=== PATIENT | female | born 1955 | race Caucasian/White ===

== ENCOUNTER → 2023-02-05 | Outpatient (CLI) | payer MEDICARE, OTHER ==
--- NOTE | 2023-02-08 05:09 | BD ---
EXAMINATION TYPE: Axial Bone Density DATE OF EXAM: 02/05/2023 CLINICAL HISTORY: 67 years old Female. ICD-10 CODE: M81.0 Osteoporosis Height: 57.5 Weight: 162.0 FRAX RISK QUESTIONS: Alcohol (3 or more units per day): No Family History (Parent hip fracture): Glucocorticoids (More than 3mos): (Ex: prednisone, prednisolone, methylprednisolone, dexamethasone, and hydrocortisone). History of Fracture in Adulthood: Secondary Osteoporosis: 1. Type 1 Diabetes: 2. Hyperthyroidism: 3. Menopause before 45: 4. Malnutrition: 5. Chronic liver disease: Rheumatoid Arthritis: Current Tobacco Use: RISK FACTORS HISTORY OF: Hip Fracture (Right/Left): When: Spine Fracture: When: History of Wrist Fracture: When: Surgery to Spine/Hip(right/left)/Wrist (right/left): When: Family History of Osteoporosis: Active: Diet low in dairy products/other sources of calcium: Postmenopausal woman: If Premenopausal, do you have irregular periods: Take estrogen and/or progesterone medications: How long: Lost more than 2 inches in height since high school: Frequent falls: Yes Poor Health: Yes Hyperparathyroidism: Adrenal Insufficiency: MEDICATIONS: Prednisone or other steroids: Which medication: Osteoporosis Medications: Additional Medications: Donepezil for dementia, melatonin, tylenol, vitamin B12, Vitamin D3 Additional History: Patient has dementia she was unable to answer history questions, 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 Bone mineral density as measured about the Lumbar spine is: ----- L1-L4(G/cm2): 0.753 T Score Values are as follows: ----- L1: -4.3 ----- L2: -3.9 ----- L3: -3.0 ----- L4: -3.4 ----- L1-L4: -3.6 Z Score Values are as follows: ----- L1: -3.0 ----- L2: -2.6 ----- L3: -1.7 ----- L4: -2.1 ----- L1-L4: -2.2 Baseline Bone mineral density about the R hip (g/cm2): 0.658 Bone mineral density about the L hip (g/cm2): 0.664 T Score values are as follows: -----R Neck: -2.9 -----L Neck: -3.5 -----R Total: -2.7 -----L Total: -2.8 Z Score values are as follows: -----R Neck: -1.6 -----L Neck: -2.2 -----R Total: -1.7 -----L Total: -1.8 Baseline FRAX%s: The graph provided illustrates a 20.7% chance for a major osteoporotic fx and a 8.0% chance f or the hips probability for fx in 10 years time. IMPRESSION: Osteoporosis (T Score less than -2.5). There is increased fracture risk and therapy is usually indicated based on age. Re-Screen 1-2 years. NOTE: T-SCORE=SD OF THE YOUNG ADULT MEAN.
--- NOTE | 2023-02-08 08:29 | MM ---
Reason for Exam: Screening (asymptomatic). Patient History: Patient has no children. Risk Values: Beulah 5 year model risk: 1.7%. NCI Lifetime model risk: 6.1%. Tissue Density: There are scattered fibroglandular densities. Findings: Analyzed By CAD. Right breast: Focal asymmetry right breast posterior depth on MLO view 9.1 cm from nipple on CC view laterally and 9.9 cm from nipple. This area measures roughly 11 mm. Left breast: There is no suspicious group of microcalcifications or new suspicious mass in either breast. Overall Assessment: Incomplete: need additional imaging evaluation, BI-RAD 0 Management: Diagnostic Breast Ultrasound of the left breast. Diagnostic Mammogram of the left breast. A clinical breast exam by your physician is recommended on an annual basis and results should be correlated with mammographic findings. [facility] will attempt to contact patient to return for supplemental views and ultrasound if indicated. Electronically signed and approved by: Bra West DO
== END | disposition home or self-care (01) ==
LOC: RADMAMWWP 13:22
PROVIDERS: ATTEND Family Medicine
DX: Z12.31 Encounter for screening mammogram for malignant neoplasm of breast (principal); M81.0 Age-related osteoporosis without current pathological fracture; M85.89 Other specified disorders of bone density and structure, multiple sites
CPT/HCPCS: 77063; 77067; 77080

== ENCOUNTER → 2023-02-10 | Outpatient (CLI) | payer MEDICARE, OTHER ==
--- NOTE | 2023-02-10 08:54 | MM ---
Reason for Exam: Additional evaluation requested from abnormal screening. Last screening mammogram was performed less than 1 month ago. Patient History: Menarche at age 13. Patient has no children. Postmenopausal. Risk Values: Beulah 5 year model risk: 1.9%. NCI Lifetime model risk: 6.7%. Prior Study Comparison: 02/05/2023 Bilateral MG 3D screening mammo w/cad, [facility]. Tissue Density: Right: There are scattered fibroglandular densities. Findings: Analyzed By CAD. Limit evaluation secondary to patient mental status/cooperation. There is redemonstration of 11 mm asymmetry right breast lateral aspect 9-10 cm from the nipple. Overall Assessment: Incomplete: need additional imaging evaluation, BI-RAD 0 Management: Diagnostic Breast Ultrasound of the right breast. A clinical breast exam by your physician is recommended on an annual basis and results should be correlated with mammographic findings. This exam should not preclude additional follow-up of suspicious palpable abnormalities. Results were given to the patient verbally at the time of exam. Electronically signed and approved by: Bar West DO
--- NOTE | 2023-02-10 09:40 | USB ---
Reason for Exam: Additional evaluation requested from abnormal screening. Patient History: Menarche at age 13. Patient has no children. Postmenopausal. Risk Values: Beulah 5 year model risk: 1.9%. NCI Lifetime model risk: 6.7%. Technique: Method: Targeted. Prior Study Comparison: 02/05/2023 Bilateral MG 3D screening mammo w/cad, [facility]. Findings: The upper outer quadrant of the right breast, the axilla of the right breast and the retroareolar of the right breast were scanned. Imaged: Ultrasound imaging of: Area of concern, retroareolar region and axilla. Hypoechoic lesion with posterior acoustic enhancement over the deep wall. Measuring 9 x 5 x 10 mm. Finding favored represent complicated cyst. Overall Assessment: Probably benign, BI-RAD 3 Management: Diagnostic Breast Ultrasound of the right breast in 6 months. A clinical breast exam by your physician is recommended on an annual basis and results should be correlated with mammographic findings. This exam should not preclude additional follow-up of suspicious palpable abnormalities. Results were given to the patient verbally at the time of exam. Electronically signed and approved by: Bar West DO
== END | disposition home or self-care (01) ==
LOC: RADMAMWWP 08:10
PROVIDERS: ATTEND Family Medicine
DX: R92.8 Other abnormal and inconclusive findings on diagnostic imaging of breast (principal); Z78.0 Asymptomatic menopausal state
CPT/HCPCS: 77065; 76642; G0279; 77061

== ENCOUNTER → 2023-08-13 | Outpatient (CLI) | payer MEDICARE, OTHER ==
--- NOTE | 2023-08-13 14:55 | MM ---
Reason for Exam: Follow-up at short interval from prior study. Last screening mammogram was performed 6 month(s) ago. Patient History: Menarche at age 13. Patient has no children. Postmenopausal. Risk Values: Beulah 5 year model risk: 1.9%. NCI Lifetime model risk: 6.7%. Prior Study Comparison: 02/05/2023 Bilateral MG 3D screening mammo w/cad, [facility]. 02/10/2023 Right MG 3D diag mammo w/cad RT, [facility]. Tissue Density: Right: The breast tissue is heterogeneously dense. This may lower the sensitivity of mammography. Findings: Analyzed By CAD. Motion degraded exam. No new suspicious mass or architectural distortion. No suspicious grouping of calcifications. Stable upper outer quadrant 1.2 cm high density mass at posterior depth. Overall Assessment: Incomplete: need additional imaging evaluation, BI-RAD 0 Management: Diagnostic Breast Ultrasound of the right breast. A clinical breast exam by your physician is recommended on an annual basis and results should be correlated with mammographic findings. This exam should not preclude additional follow-up of suspicious palpable abnormalities. Results were given to the patient verbally at the time of exam. Note on Beulah scores and lifetime risk: 1. A Beulah score greater than 3% is considered moderate risk. If this is the case, consider specialist referral to assess eligibility for a risk reducing agent. If overall lifetime risk for the development of breast cancer is 20% or higher, the patient may qualify for future screening with alternating mammogram and breast MRI. Electronically signed and approved by: Chan Ramos D.O.
--- NOTE | 2023-08-13 15:20 | USB ---
Reason for Exam: Additional evaluation requested from prior study. Patient History: Menarche at age 13. Patient has no children. Postmenopausal. Risk Values: Beulah 5 year model risk: 1.9%. NCI Lifetime model risk: 6.7%. Technique: Method: Targeted. Prior Study Comparison: 02/05/2023 Bilateral MG 3D screening mammo w/cad, [facility]. 02/10/2023 Right MG 3D diag mammo w/cad RT, [facility]. Findings: The upper outer quadrant of the right breast and the axilla of the right breast were scanned. Targeted ultrasound the right breast from 9-12 o'clock with additional evaluation of the nipple and axial talus performed. There is a stable ovoid circumscribed hypoechoic mass that is parallel in orientation without internal color flow. This measures 0.9 x 0.5 x 0.8 cm. Overall Assessment: Probably benign, BI-RAD 3 Management: Diagnostic Breast Ultrasound of the right breast in 6 months. Diagnostic Mammogram of both breasts in 6 months. A clinical breast exam by your physician is recommended on an annual basis and results should be correlated with mammographic findings. This exam should not preclude additional follow-up of suspicious palpable abnormalities. Results were given to the patient verbally at the time of exam. Electronically signed and approved by: Chan Ramos D.O.
== END | disposition home or self-care (01) ==
LOC: RADMAMWWP 14:24
PROVIDERS: ATTEND Family Medicine
DX: N63.11 Unspecified lump in the right breast, upper outer quadrant (principal); R92.331 Mammographic heterogeneous density, right breast; Z78.0 Asymptomatic menopausal state
CPT/HCPCS: 77065; 76642; G0279; 77061

== ENCOUNTER → 2024-02-17 | Outpatient (CLI) | payer MEDICARE ==
--- NOTE | 2024-02-17 08:13 | MM ---
Reason for Exam: Follow-up at short interval from prior study. Last mammogram was performed 1 year(s) and 1 month(s) ago. Patient History: Menarche at age 13. Patient has no children. Postmenopausal. Risk Values: Beulah 5 year model risk: 1.9%. NCI Lifetime model risk: 6.4%. Tissue Density: The breasts are heterogeneously dense, which may obscure small masses. Findings: Analyzed By CAD. The pattern is symmetrical. There is stable focal asymmetry in the upper outer right breast. No suspicious groups of microcalcifications, spiculated or lobular masses, architectural distortion or other secondary signs of malignancy are mammographically apparent. Overall Assessment: Benign, BI-RAD 2 Management: Screening Mammogram of both breasts in 1 year. A negative mammogram report should not preclude additional follow up of suspicious palpable abnormalities. Patient should continue monthly self breast exam. A clinical breast exam by your physician is recommended on an annual basis and results should be correlated with mammographic findings. Note on Beulah scores and lifetime risk: 1. A Beulah score greater than 3% is considered moderate risk. If this is the case, consider specialist referral to assess eligibility for a risk reducing agent. 2. If overall lifetime risk for the development of breast cancer is 20% or higher, the patient may qualify for future screening with alternating mammogram and breast MRI. Electronically signed and approved by: Jhonny Roman D.O. Radiologis
== END | disposition home or self-care (01) ==
LOC: RADMAMWWP 07:45
PROVIDERS: ATTEND Family Medicine
DX: R92.333 Mammographic heterogeneous density, bilateral breasts (principal); C50.919 Malignant neoplasm of unspecified site of unspecified female breast; Z78.0 Asymptomatic menopausal state
CPT/HCPCS: 77066; G0279; 77062